=== PATIENT | male | born 1940 | race Caucasian/White ===

== ENCOUNTER → 2017-02-23 09:43 | Outpatient (CLI) | payer MEDICARE ==
[2017-02-23 10:37] LABS: BASOPHILS 0.7 % (0-2); EOSINOPHILS 6.8 % (0-7); HEMATOCRIT 44.9 % (42.0-54.0); HEMOGLOBIN 15.3 g/dL (13.5-17.5); IMMATURE GRANULOCYTES 0.6 % (0-5); MCH 33.9 pg (26.0-34.0); MCHC 34.1 g/dL (31.0-37.0); MCV 99.6 fL (80.0-100.0); MEAN PLATELET VOLUME 10.4 fL (7.4-10.4); MONOCYTES 7.9 % (2-11); PLATELET COUNT 143 10x3/uL (130-400); RBC 4.51 10x6/uL (4.20-6.10); RDW 13.4 % (11.5-14.5); WBC 7.3 10x3/uL (4.8-10.8)
[2017-02-23 11:17] LABS: ALBUMIN 4.1 g/dL (3.4-5.0); ANION GAP 9.3 mmol/L (8-16); BILIRUBIN - TOTAL 0.73 mg/dL (0.2-1.3); CALCIUM 9.3 mg/dL (8.5-10.1); CARBON DIOXIDE 30.3 mmol/L (21.0-32.0); CHOL - HDL RATIO 5.2 ratio (2.3-4.9); CREATININE - SERUM 1.1 mg/dL (0.6-1.3); LDL-HDL RATIO 3.6 ratio (1.5-3.5); POTASSIUM - SERUM 4.6 mmol/L (3.5-5.1); PROTEIN - SERUM 7.6 g/dL (6.4-8.2); THYROID STIMULATING HORMONE 3.45 uIU/mL (0.36-3.74)
== END | disposition home or self-care (01) ==
LOC: D.LAB 09:43
PROVIDERS: Family Medicine
DX: E78.5 Hyperlipidemia, unspecified (principal); E03.9 Hypothyroidism, unspecified; Z12.5 Encounter for screening for malignant neoplasm of prostate; Z00.01 Encounter for general adult medical examination with abnormal findings

== ENCOUNTER 2017-07-16 11:35 | Emergency (ER) | payer MEDICARE | END 2017-07-16 14:49 | disposition home or self-care (01) | LOC: D.ER 11:35 | DX: S61.412A Laceration without foreign body of left hand, initial encounter (principal); W29.8XXA Contact with other powered hand tools and household machinery, initial encounter; Y93.89 Activity, other specified; Y92.029 Unspecified place in mobile home as the place of occurrence of the external cause ==

== ENCOUNTER 2019-03-28 06:52 | Day surgery (SDC) | payer MEDICARE ==
[2019-03-27 16:20] LABS: HEMATOCRIT 41.8 % (42.0-54.0); HEMOGLOBIN 14.6 g/dL (13.5-17.5); MCH 33.5 pg (26.0-34.0); MCHC 34.9 g/dL (31.0-37.0); MCV 95.9 fL (80.0-100.0); MEAN PLATELET VOLUME 10.6 fL (7.4-10.4); RBC 4.36 10x6/uL (4.20-6.10); RDW 13.8 % (11.5-14.5); WBC 5.9 10x3/uL (4.8-10.8)
[~2019-03-28] VITALS: Ht 170.2 cm; Wt 78.5 kg
[~2019-03-28 06:52] MED LIST: LIPITOR20 MG PO; SYNTHROID50 MCG PO
[2019-03-28] MEDS ORDERED: DEXAMETHASONE2 MG PO (07:11)
[2019-03-28 07:14] VITALS: BP 133/65; Ht 170.2 cm; Wt 78.5 kg
--- NOTE | 2019-03-28 13:48 | OP ---
PATIENT NAME: NICHO FARNSWORTH MEDICAL RECORD: [id number] LOCATION:[facility] ADMISSION DATE: SURGEON: LÁZARO DAVIES MD DATE OF OPERATION: 03/28/2019 SURGEON: Lázaro Davies MD ANESTHESIA: TIVA by Steffi Doherty CRNA. DIAGNOSIS: Obstructive benign prostatic hyperplasia with PSA is 2.0 on 05/09/2018. PVR is 123 mL. IPSS equals 26 and quality of life is 5 on Flomax. Digital rectal exam reveals a 20 gram prostate. PROCEDURE: UroLift times 4 in a box configuration. FINDINGS: Obstructive bladder neck with no significant median lobe, nonobstructive lateral lobes, trabeculated bladder without any tumors. BLOOD LOSS: None. CLINICAL HISTORY: This is a 78-year-old male, who has obstructive BPH symptoms. He has been on tamsulosin for over 2 months and notes no improvement with the medication. He does have dizziness upon arising from bed due to the medication. He wishes to have the UroLift procedure done. He is not allergic to any medications. 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 On digital rectal examination, the prostate is small at 20 grams. DESCRIPTION OF PROCEDURE: The patient was given IV sedation. He was then placed in lithotomy position and prepped and draped. Lidocaine jelly was inserted into the urethra. The urethral meatus was rather narrow and we dilated the urethral meatus to 26-Turkmen. Male sounds were used for this. The scope was then placed and no urethral strictures were seen. The lateral lobes of the prostate are not obstructive, but the bladder neck is tight. There is no significant median lobe. Going into the bladder, the bladder was trabeculated, but no bladder tumors are seen. I decided to place the 4 UroLift units in a box configuration. There all placed about 1.5 cm distal to the bladder neck. The first two were placed at the anterolateral sulcus with one unit on each side. The second 2 were placed at the mid urethral level with 1 unit on each side. This opened the bladder neck into a nice wide rectangular opening. I left the bladder libertarian for a voiding trial today. I will see him in followup in 1 months' time. TRANSINT:[id number] Voice Confirmation ID: [id number] DOCUMENT ID: [id number] LÁZARO DAVIES MD at 1348 CC: [id number] DICTATION DATE: 03/28/19 1201 PUBLIC SERVICES LIBRARIAN: 03/28/19 1345 [facility] [address] [id number]
--- NOTE | 2019-03-28 14:33 | NUR ---
1400 DUTTON INSERTED RECIEVED BLOODY URINE. NO CLOTS. RECIEVED 450 URINE.
--- NOTE | 2019-03-28 16:45 | NUR ---
1400 UNABLE TO URINATE CATH PT AND GOT A TOTAL OF 600 BLOODY URINE. 1500 CATHETER CONNECTED TO LEG BAG AND CLOT NOTED AT END OF CATHETER. IRRIGATED WITH STERILE WATER. CLEAR FLUID RETURNED. NEW BAG ATTACHED. AND IV ERMOVED AND PT DISCHARGED HOME.
== END 2019-03-28 16:15 | disposition home or self-care (01) ==
LOC: D.PAN 06:52 → D.OPS 10:15 → D.PAN 10:15
PROVIDERS: Anesthesiology; ATTEND Urology
DX: N40.1 Benign prostatic hyperplasia with lower urinary tract symptoms (principal); N13.8 Other obstructive and reflux uropathy; N32.89 Other specified disorders of bladder; Z01.812 Encounter for preprocedural laboratory examination

== ENCOUNTER 2019-04-01 19:11 | Emergency (ER) | payer MEDICARE ==
[~2019-04-01] VITALS: Ht 170.2 cm; Wt 75.9 kg
[~2019-04-01 19:11] MED LIST changes: +DEXAMETHASONE2 MG PO
[2019-04-01 19:16] VITALS: Ht 170.2 cm; Wt 75.9 kg
[2019-04-01 21:35] VITALS: BP 124/73
[2019-04-01 21:54] LABS: APPEARANCE CLEAR (CLEAR); BILIRUBIN NEGATIVE (NEGATIVE); COLOR STRAW (YELLOW); GLUCOSE NEGATIVE (NEGATIVE); KETONE NEGATIVE (NEGATIVE); NITRITE NEGATIVE (NEGATIVE); PROTEIN NEGATIVE (NEGATIVE); SPECIFIC GRAVITY 1.005 (1.005-1.020); UROBILINOGEN NORMAL (NORMAL)
[2019-04-01 22:00] LABS: BACTERIA MODERATE /hpf (NONE SEEN); EPITHELIAL CELLS NSEEN /hpf (0-5); RED CELLS - URINE 0-5 /hpf (0-5); WHITE CELLS - URINE 0-5 /hpf (0-5)
== END 2019-04-01 21:35 | disposition home or self-care (01) ==
LOC: D.ER 19:11
PROVIDERS: Family Medicine
DX: T83.018A Breakdown (mechanical) of other urinary catheter, initial encounter (principal); Z98.890 Other specified postprocedural states

== ENCOUNTER → 2019-05-10 18:49 | Outpatient (CLI) | payer MEDICARE ==
[2019-04-01 19:16] VITALS: BMI 26.2
== END | disposition home or self-care (01) ==
LOC: D.LABREF 18:49
PROVIDERS: ATTEND Urology
DX: D72.829 Elevated white blood cell count, unspecified (principal)